=== PATIENT | female | born 1945 | race Caucasian/White ===

== ENCOUNTER 2020-02-10 12:15 | Outpatient (CLI) | payer MEDICARE, BC ==
--- NOTE | 2020-02-10 13:48 | MRI ---
MRI OF RIGHT KNEE PERFORMED WITHOUT CONTRAST ENHANCEMENT: 02/10/20 HISTORY: Fall with knee injury. Anterior and posterior cruciate ligaments are intact. There is an undersurface flap type tear involvi ng the posterior horn of the medial meniscus. There are moderate arthritic changes in the medial comp artment of the knee. There is joint space narrowing. 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 Internal signal change extends into the body of the meni scus which is probably a combination of some element of tear but mostly mucoid degeneration. The lateral meniscus is normal in appearance. There is a small focus of full thickness fissuring invo lving more of the posterior articular surface of the lateral tibial plateau. The medial and lateral c ollateral ligaments and iliotibial band regions appear unremarkable. Patellar articular cartilage shows grade IV chondromalacia change of the medial facet. The medial pat ellar retinaculum appears somewhat thickening at its patellar attachment. Lateral patellar retinaculu m is intact. The quadriceps and patellar tendons are intact. IMPRESSION: Posterior horn medial meniscus tear with associated arthritic change of the medial compartment of the knee. POS: ROBBIE
== END 2020-02-10 12:16 | disposition home or self-care (01) ==
LOC: TBSIIMAG 12:15
PROVIDERS: ATTEND Orthopaedic Surgery
DX: M17.11 Unilateral primary osteoarthritis, right knee (principal); S83.241A Other tear of medial meniscus, current injury, right knee, initial encounter

== ENCOUNTER 2020-03-06 08:06 | Outpatient (CLI) | payer MEDICARE, BC ==
[2020-03-06 13:49] LABS: #Eosinphils 0.1 10x3/uL (0.0-0.5); #Monocytes 0.5 10x3/uL (0.0-1.1); #Neutrophils 3.8 10x3/uL (1.5-8.4); %Basophils 0.5 % (0.0-2.0); %Eosinophils 1.1 % (0.0-6.0); %Lymphocytes 32.5 % (18.0-47.0); %Monocytes 8.2 % (0.0-10.0); %Neutrophils 57.5 % (40.0-75.0); Hemoglobin 14.8 g/dL (12.0-16.0); Mean Corpuscular HGB CONC 33.6 G/DL (32.0-36.0); Mean Corpuscular Hemoglobin 28.6 PG (27.0-33.0); Mean Corpuscular Volume 85.1 fl (80.0-100.0); Platelet Count 278 10x3/uL (130-400); Red Blood Cell (RBC) Count 5.17 10x6/uL (3.90-5.20); White Blood Cell (WBC) Count 6.6 10x3/uL (4.5-11.0)
[2020-03-06 13:58] LABS: Anion Gap 15 mmol/L (10-20); BUN (Urea Nitrogen) 17 mg/dL (9.8-20.1); Calc. Creatinine Clearance 0 mL/min (70-130); Calcium 10.2 mg/dL (7.8-10.44); Carbon Dioxide 24 mmol/L (23-31); Chloride 105 mmol/L (98-107); Glucose 113 mg/dL (83-110); Sodium 140 mmol/L (136-145)
[2020-03-07 06:06] LABS: SARS-CoV-2 MS2 Positive; SARS-CoV-2 N Gene Negative; SARS-CoV-2 S Gene Negative; SARS-CoV-2 by NAA Not Detected (NotDetected); SARS-CoV-2 orf1ab Negative
== END 2020-03-06 08:07 | disposition home or self-care (01) ==
LOC: LABBT 08:06
PROVIDERS: ATTEND Orthopaedic Surgery
DX: Z01.818 Encounter for other preprocedural examination (principal); S83.206A Unspecified tear of unspecified meniscus, current injury, right knee, initial encounter; Z20.822 Contact with and (suspected) exposure to COVID-19
CPT/HCPCS: 80048; 85025; 93005; U0003; 87635; 93010

== ENCOUNTER 2020-03-09 07:18 | Day surgery (SDC) | payer MEDICARE, BC ==
[2020-03-07 13:20] VITALS: BMI 33.7
[2020-03-09] MEDS ORDERED: PROPOFOL 20 ML ONE (08:31)
[2020-03-09] MEDS ORDERED: PROPOFOL 200 MG/20 ML VIAL ONE (09:09)
[2020-03-09] MEDS ORDERED: Lidocaine 2% w/Epinephrine 1:200K 20 ML VIAL ONE (09:09)
[2020-03-09] MEDS ORDERED: Ketorolac Tromethamine 30 MG/ML VIAL ONE (09:09)
[2020-03-09] MEDS ORDERED: Dexamethasone 20 MG/5 ML VIAL ONE (09:09)
[2020-03-09] MEDS ORDERED: Ondansetron PF 4 MG/2 ML Vial ONE (09:09)
[2020-03-09] MEDS ORDERED: Bupivacaine HCl 0.5%/Epinephrine 1:200,000/PF 30 ml Vial ONE (09:09)
[2020-03-09] MEDS ORDERED: HYDROcodone/Acetaminophen 5/325 mg Tablet ONE (12:13)
--- NOTE | 2020-03-09 17:35 | OP ---
DATE OF PROCEDURE: 03/09/2020 PREOPERATIVE DIAGNOSES: Right knee degenerative meniscal tear, medial meniscus. POSTOPERATIVE DIAGNOSES: 1. Right knee degenerative meniscal tear, medial meniscus. 2. 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 PROCEDURES PERFORMED: Right knee arthroscopy, partial medial meniscectomy. INGOT SUPERVISOR: None. ESTIMATED BLOOD LOSS: Minimal. COMPLICATIONS: None. ANESTHESIA: She had a general anesthetic. She also had a local knee block. DISPOSITION: She went to recovery room in stable condition. INDICATIONS: A 74-year-old female, who complains of pain, catching, and swelling in the knee. She is found to have meniscus tear with a flap component to it and at this time wished to have surgery. DESCRIPTION OF PROCEDURE: After all appropriate consent forms were explained and signed, she was taken back to the operating room and at this time was given general anesthetic. Once the level of anesthesia was appropriate, tourniquet was placed on the thigh. Leg was placed in arthroscopic leg dacosta. The limb was then prepped and draped in standard surgical fashion. Limb was exsanguinated and tourniquet was taken up to 300 mmHg. Inferolateral portal was then established and scope was placed into the knee joint. Needle localization technique was then used to make a medial working portal. Diagnostic arthroscopy commenced in the notch. ACL and PCL were probed, found to be intact. Medial compartment showed a posterior horn of medial meniscus to have a degenerative tear. Partial meniscectomy was performed using meniscal biter and shaver back to a stable base. There was some minimal grade 2 changes on the tibia. There was some significant grade 2 to 3 changes on the femur. No unstable chondral flaps were noted. The lateral compartment was evaluated and found to be intact. The gutters were swept through and were clean. Patellofemoral joint showed the patella to be in good condition but the entire trochlea demonstrated Grade 3/4 changes. No treatment was needed. At thistime, the scope was removed, knee was drained, Portals were closed with simple nylon stitch. Bulky sterile dressing was applied. Tourniquet was let down. Toes pinked up nicely. The patient was awakened and taken to recovery room in stable condition. All counts were correct at the end of the case and she did receive preoperative IV antibiotics. Job ID: [id number] [facility]
== END 2020-03-09 12:42 | disposition home or self-care (01) ==
LOC: SDC 07:18
PROVIDERS: ATTEND Orthopaedic Surgery
PROC: 0SBC4ZZ Excision of Right Knee Joint, Percutaneous Endoscopic Approach (ICD-10-PCS; principal; 2020-03-09)
DX: S83.241A Other tear of medial meniscus, current injury, right knee, initial encounter (principal); M94.261 Chondromalacia, right knee; E03.9 Hypothyroidism, unspecified; I10 Essential (primary) hypertension; K21.9 Gastro-esophageal reflux disease without esophagitis; Z79.82 Long term (current) use of aspirin; Z79.899 Other long term (current) drug therapy
CPT/HCPCS: J0690; J2704

== ENCOUNTER 2023-08-26 10:55 | Outpatient (CLI) | payer MEDICARE, BC | END 2023-08-26 10:56 | disposition home or self-care (01) | LOC: BICCT 10:55 | PROVIDERS: ATTEND Nurse Practitioner Family | DX: R51.9 Headache, unspecified (principal); I70.90 Unspecified atherosclerosis; G93.9 Disorder of brain, unspecified | CPT/HCPCS: 70450 ==

== ENCOUNTER 2023-09-21 10:08 | Outpatient (CLI) | payer MEDICARE, BC ==
[2023-09-21] MEDS ORDERED: Magnevist 469MG/ML 20 ML VIAL ONE (11:00)
== END 2023-09-21 10:09 | disposition home or self-care (01) ==
LOC: MRI 10:08
PROVIDERS: ATTEND Internal Medicine Cardiovascular Disease
DX: M89.9 Disorder of bone, unspecified (principal); I67.89 Other cerebrovascular disease
CPT/HCPCS: 70553; 76377; A9579

== ENCOUNTER 2025-01-27 06:37 | Observation (INO) | payer MEDICARE, BC ==
[2025-01-27] MEDS ORDERED: fentaNYL PF 100 MCG/2 ML SYRINGE ONE ×2 (08:38→12:08)
[2025-01-27] MEDS ORDERED: Thrombin 5000 UNITS/5 ML VIAL ONE (08:55)
[2025-01-27] MEDS ORDERED: PROPOFOL 200 MG/20 ML VIAL ONE (09:30)
[2025-01-27] MEDS ORDERED: Rocuronium Bromide 10 MG/ML (10ML VIAL) ONE (09:30)
[2025-01-27] MEDS ORDERED: Ondansetron PF 4 MG/2 ML Vial ONE (09:53)
[2025-01-27] MEDS ORDERED: SUGAMMADEX SODIUM 200 MG/2 ML VIAL ONE (11:35)
[2025-01-27] MEDS ORDERED: HYDROmorphone 0.5 MG/0.5 ML SYRINGE ONE ×3 (12:12→14:24)
[2025-01-27] MEDS ORDERED: Bisacodyl 10 MG SUPP PR PRN (15:02)
[2025-01-27] MEDS ORDERED: diphenhydrAMINE 50 MG/ML VIAL IVP PRN (15:02)
[2025-01-27] MEDS ORDERED: Ondansetron PF 4 MG/2 ML Vial IVP PRN (15:02)
[2025-01-27] MEDS: HYDROcodone/Acetaminophen 10/325 mg Tablet PO PRN (18:32)
[2025-01-27] MEDS: Ezetimibe 10 MG TAB PO SCH (20:22)
[2025-01-27] MEDS: Metoprolol Succinate XL 25 MG ER.TAB PO SCH (20:23)
[2025-01-27] MEDS: Rosuvastatin 20 MG TAB PO SCH (20:23)
[2025-01-27] MEDS: Gabapentin 300 MG CAP PO SCH (20:26)
[2025-01-27] MEDS: Cyclobenzaprine 10 MG TAB PO PRN (20:30)
[2025-01-28] MEDS: Levothyroxine 150 MCG TAB PO SCH (05:35)
[2025-01-28] MEDS: Pantoprazole 40 MG DR.TAB PO SCH (10:18)
[2025-01-28] MEDS: Spironolactone 25 MG TAB PO SCH (10:18)
[2025-01-28 12:51] VITALS: BP 120/70; TEMP 98.1
[2025-01-28] MEDS: HYDROcodone/Acetaminophen 10/325 mg Tablet PO PRN (14:31)
[2025-01-28] MEDS: MAGNESIUM GLYCINATE 120 MG PO SCH (15:05)
[2025-01-28 16:57] VITALS: BMI 31.9
[2025-01-30] MEDS ORDERED: FLU (Fluad Triv) 25-26 (65UP)PF 45 MCG/0.5 ML Syringe IM ONE (09:00)
== END 2025-01-28 14:45 | disposition home or self-care (01) ==
LOC: SDC 06:37 → SURG B 16:36
PROVIDERS: ADMIT Neurological Surgery; ATTEND Neurological Surgery
PROC: 0SG0071 Fusion of Lumbar Vertebral Joint with Autologous Tissue Substitute, Posterior Approach, Posterior Column, Open Approach (ICD-10-PCS; principal; 2025-01-27)
DX: M48.061 Spinal stenosis, lumbar region without neurogenic claudication (principal); M43.16 Spondylolisthesis, lumbar region; M54.16 Radiculopathy, lumbar region; I11.9 Hypertensive heart disease without heart failure; I25.10 Atherosclerotic heart disease of native coronary artery without angina pectoris; E78.5 Hyperlipidemia, unspecified; E03.9 Hypothyroidism, unspecified; K21.9 Gastro-esophageal reflux disease without esophagitis; Z90.710 Acquired absence of both cervix and uterus; Z90.89 Acquired absence of other organs; Z79.82 Long term (current) use of aspirin; Z79.899 Other long term (current) drug therapy
CPT/HCPCS: 20931; 20936; 22612; 22840; 97530; C1713 ×4; C1889 ×2; J0169; J1100; J1171; J2405; J2704; J3010